=== PATIENT | female | born 1935 | race Caucasian/White ===

== ENCOUNTER → 2018-08-09 | Outpatient (CLI) | payer MEDICARE | LOC: M.ULTRA 08-06 16:41 | DX: I65.23 Occlusion and stenosis of bilateral carotid arteries (principal); G44.52 New daily persistent headache (NDPH); I67.82 Cerebral ischemia ==

== ENCOUNTER → 2018-12-14 | Outpatient (CLI) | payer MEDICARE ==
[~2018-12-14] MED LIST: ACID CONTROLLER20 MG PO; CALCIUM500 MG PO; LOPRESSOR50 MG PO; MULTI VITAMIN1 EACH PO; NEURONTIN 400M400 M2 PO; NEURONTIN300 MG PO; NORCO 5-325 TA1 EAC1 PO; OCUVITE TABLET1 EAC1 PO; PROTONIX40 M2 PO; SINGULAIR 10 MG10 M1 PO; TRIAMTERENE/HCT1 CA1 PO; VITAMIN B-121000 MC2 PO; VITAMIN D31000 UNIT PO
== END ==
LOC: M.RAD 14:56
DX: R05 Cough (principal); M47.819 Spondylosis without myelopathy or radiculopathy, site unspecified; Z88.0 Allergy status to penicillin; Z88.8 Allergy status to other drugs, medicaments and biological substances

== ENCOUNTER 2018-12-28 11:52 | Emergency (ER) | payer MEDICARE ==
[~2018-12-28] VITALS: Ht 160 cm; Wt 70.8 kg
[2018-12-28] MEDS ORDERED: SINGULAIR 10 MG10 M1 PO (12:12)
[2018-12-28] MEDS ORDERED: TRIAMTERENE/HCT1 CA1 PO (12:12)
[2018-12-28] MEDS ORDERED: LOPRESSOR50 MG PO (12:13)
[2018-12-28] MEDS ORDERED: NEURONTIN300 MG PO (12:13)
[2018-12-28] MEDS ORDERED: CALCIUM500 MG PO (12:14)
[2018-12-28] MEDS ORDERED: NEURONTIN 400M400 M2 PO (12:14)
[2018-12-28] MEDS ORDERED: PROTONIX40 M2 PO (12:14)
[2018-12-28] MEDS ORDERED: ACID CONTROLLER20 MG PO (12:14)
[2018-12-28] MEDS ORDERED: VITAMIN D31000 UNIT PO (12:15)
[2018-12-28] MEDS ORDERED: VITAMIN B-121000 MC2 PO (12:16)
[2018-12-28] MEDS ORDERED: OCUVITE TABLET1 EAC1 PO (12:16)
[2018-12-28] MEDS ORDERED: MULTI VITAMIN1 EACH PO (12:16)
[2018-12-28] MEDS ORDERED: NORCO 5-325 TA1 EAC1 PO (13:06)
[2018-12-28 13:17] VITALS: BP 126/75
== END 2018-12-28 13:18 | disposition home or self-care (01) ==
LOC: M.ERS 11:52
DX: S86.812A Strain of other muscle(s) and tendon(s) at lower leg level, left leg, initial encounter (principal); Z88.5 Allergy status to narcotic agent; Z88.0 Allergy status to penicillin; Z91.041 Radiographic dye allergy status; W01.0XXA Fall on same level from slipping, tripping and stumbling without subsequent striking against object, initial encounter; Y93.89 Activity, other specified; Y92.89 Other specified places as the place of occurrence of the external cause; Y99.8 Other external cause status

== ENCOUNTER 2019-10-14 08:49 | Emergency (ER) | payer MEDICARE ==
[~2019-10-14] VITALS: Ht 165.1 cm; Wt 68.0 kg
[2019-10-14] MEDS ORDERED: ZPAK PO (09:04)
[2019-10-14 09:30] VITALS: BP 160/85
== END 2019-10-14 09:31 | disposition home or self-care (01) ==
LOC: M.ERS 08:49
DX: J32.1 Chronic frontal sinusitis (principal); Z88.5 Allergy status to narcotic agent; Z88.0 Allergy status to penicillin; Z91.041 Radiographic dye allergy status

== ENCOUNTER → 2019-10-25 | Outpatient (CLI) | payer MEDICARE ==
[~2019-10-25] MED LIST changes: +ZPAK PO
== END ==
LOC: M.CT 10-23 14:37
PROVIDERS: ATTEND Internal Medicine
DX: J34.1 Cyst and mucocele of nose and nasal sinus (principal); J34.89 Other specified disorders of nose and nasal sinuses; J01.01 Acute recurrent maxillary sinusitis; R51 Headache

== ENCOUNTER → 2019-12-13 | Outpatient (CLI) | payer MEDICARE | LOC: M.RAD 16:18 | PROVIDERS: ATTEND Internal Medicine | DX: M25.532 Pain in left wrist (principal) ==

== ENCOUNTER → 2020-01-16 | Outpatient (CLI) | payer MEDICARE | LOC: M.RAD 09:41 | PROVIDERS: ATTEND Obstetrics & Gynecology | DX: Z12.31 Encounter for screening mammogram for malignant neoplasm of breast (principal) ==

== ENCOUNTER → 2020-04-03 | Outpatient (CLI) | payer MEDICARE | LOC: M.MRI 16:07 | PROVIDERS: ATTEND Orthopaedic Surgery | DX: S63.592A Other specified sprain of left wrist, initial encounter (principal); M25.332 Other instability, left wrist; M19.032 Primary osteoarthritis, left wrist; X58.XXXA Exposure to other specified factors, initial encounter; Y93.89 Activity, other specified; Y92.89 Other specified places as the place of occurrence of the external cause; Y99.8 Other external cause status ==

== ENCOUNTER → 2020-09-24 | Outpatient (CLI) | payer MEDICARE | LOC: M.NUC 09-21 12:00 | PROVIDERS: ATTEND Nurse Practitioner Adult Health | DX: R68.81 Early satiety (principal); K21.9 Gastro-esophageal reflux disease without esophagitis ==

== ENCOUNTER → 2020-12-17 | Outpatient (CLI) | payer MEDICARE | LOC: M.RAD 11:02 | PROVIDERS: ATTEND Internal Medicine | DX: M41.86 Other forms of scoliosis, lumbar region (principal); M47.816 Spondylosis without myelopathy or radiculopathy, lumbar region; M47.817 Spondylosis without myelopathy or radiculopathy, lumbosacral region; I70.0 Atherosclerosis of aorta ==

== ENCOUNTER → 2021-01-19 | Outpatient (CLI) | payer MEDICARE | LOC: M.RAD 09:22 | PROVIDERS: ATTEND Internal Medicine | DX: M85.88 Other specified disorders of bone density and structure, other site (principal); M81.0 Age-related osteoporosis without current pathological fracture ==

== ENCOUNTER → 2021-03-24 | Outpatient (CLI) | payer MEDICARE | LOC: M.RAD 08:50 | PROVIDERS: ATTEND Obstetrics & Gynecology | DX: Z12.31 Encounter for screening mammogram for malignant neoplasm of breast (principal) ==